=== PATIENT | male | born 1930 | race Caucasian/White ===

== ENCOUNTER 2017-08-02 12:35 | Emergency (ER) | payer MEDICARE, BC ==
[2017-08-02] MEDS: LIDOCAINE 1% (MDV) 10 ML INJ INJ (14:00)
[2017-08-02] MEDS: DIPHTH/TET/ACEL PERTUSS (ADULT) 0.5 ML VIAL IM* (14:03)
== END 2017-08-02 15:25 | disposition home or self-care (01) ==
LOC: FTE 12:35
DX: S91.012A Laceration without foreign body, left ankle, initial encounter (principal); W29.3XXA Contact with powered garden and outdoor hand tools and machinery, initial encounter; Y92.9 Unspecified place or not applicable; Z23 Encounter for immunization
CPT/HCPCS: 12001; 90471; 90715; 99283-25